=== PATIENT | male | born 1930 | race Caucasian/White ===

== ENCOUNTER 2017-08-14 12:11 | Observation (INO) | payer MEDICARE, OTHER ==
[2017-08-14] MEDS ORDERED: Sodium Chloride 0.9% 10 ML Syringe FLUSH PRN (12:47)
[2017-08-14] MEDS ORDERED: Non-Formulary Medication 1 Each (Albuterol Sulfate [Proair Respiclick] 1 PUFF) IH PRN (12:50)
[2017-08-14] MEDS ORDERED: Albuterol 0.083% 2.5 MG/3 ML Neb Soln NEB PRN (12:56)
[2017-08-14] MEDS ORDERED: Lactated Ringers 1,000 ML IV SCH ×2 (13:00→22:30)
[2017-08-14] MEDS ORDERED: Acetaminophen 325 MG Tab PO PRN (14:00)
[2017-08-14] MEDS ORDERED: Gabapentin 100 MG Cap PO SCH (20:00)
[2017-08-14] MEDS: Tamsulosin 0.4 MG Cap.ER PO SCH (20:04)
--- NOTE | 2017-08-14 20:18 | HP ---
CHIEF COMPLAINT: Shakiness and confusion. HISTORY OF PRESENT ILLNESS: This is an 86-year-old male who was in his normal state of health yesterday, woke up this morning to his alarm and had shaking. He did not feel cold or had any fevers. No other symptoms but was reported to be confused when he showed up at work. He drove there. They tried to get him to come to the clinic, but he went to some financial appointment and they actually brought him over to the clinic. His daughter works here. He was seen. He was found to have a temperature of 101, but his white count was normal and there was no other symptoms to suggest a source of infection. His urine test was normal. He was having a hard time voiding as he had been incontinent. His kidney function was otherwise near baseline at creatinine 1.4. He had a tick bite on the right arm and had some cellulitis, was treated for that on 08/05 with doxycycline for 1 week. It was here in [facility]. Otherwise, he has not been short of breath. No new muscle aches. No new skin rashes. ALLERGIES: Allergies include Rocephin. MEDICATIONS: Medication list is reviewed. Does include Lasix 20 mg daily, Ditropan 10 mg daily, Zocor 20 mg at bedtime, Flomax 0.4 mg b.i.d., Neurontin 200 mg take 2 at bedtime, Lopressor 25 mg daily, Claritin 10 mg daily, nitroglycerin every 5 minutes as needed for chest pain, albuterol as needed, multivitamin, vitamin D, B complex, B12, aspirin 81 mg daily, fish oil, and oxygen 4-5 L at night. 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 He did have an aortic valve replacement with bioprosthesis in 2010. 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 SURGICAL HISTORY: Includes a heart valve replacement as discussed above. He has also had eye surgery with cataracts and carpal tunnel bilaterally. FAMILY HISTORY: The patient's parents are both . He has a sister has heart disease and hypertension. SOCIAL HISTORY: He is . 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 He has 5 children. He is planning on moving into [place] soon. REVIEW OF SYSTEMS: General: There have been no weight changes. HEENT: No sore throat. Cardiac: No chest pain. No palpitations. Respiratory: No cough. No shortness of breath. Musculoskeletal: No new joint aches or pain. Skin: No new rashes. Otherwise, all systems reviewed and found to be negative unless otherwise stated. PHYSICAL EXAMINATION: Vital Signs: Does show him to have a blood pressure 130/72, temp 101.4, pulse 99, pulse ox 96% on room air. General: He is in no acute distress. Heart: Regular rate and rhythm. S1, S2 with murmur. Lungs: Sound clear to auscultation bilaterally. No crackles or wheezes. Extremities: Warm and dry. No edema. Mental Status: Alert and orientated x3. His confusion did clear up while he was at the clinic. He was also given some Tylenol, but fever persisted. Neck: Otherwise his neck is supple without lymphadenopathy. He has not been vomiting. He has no headache. No neck stiffness. No nuchal rigidity. LABORATORY DATA: White count normal at 9.3, hemoglobin 11.3, platelets 134. Sodium 137, glucose 163, BUN 29, creatinine 1.4, chloride 102, bicarb 25. UA completely negative for leukocyte esterase and nitrite. Protein and blood all negative. ASSESSMENT AND PLAN: 1. Fever, unknown source, possibly a viral illness like West Nile. There is no indication for antibiotics, but given history of endocarditis, we will do some blood cultures. We will give him some fluids. We will keep him in the hospital on observation as discussed with him and his daughter. We will send off some blood work for lactic acid, blood cultures, liver enzymes, and monitor clinically. We will have Tylenol available for fever. 2. Mild renal insufficiency with chronic kidney disease. We will hold off on any NSAIDs. We will repeat lab work in the morning. 3. History of endocarditis. He has a bioprosthetic valve. Again, we will do blood cultures. 4. Essential hypertension. 5. Type 2 diabetes, stable. We will do some Accu-Cheks. We will continue home medications. PLAN: The patient is admitted for observation for further workup of fever. We will send off West Nile testing. We will reassess in the morning. Discharge home if no further fevers. He is a code level 1. No DVT prophylaxis due to plan for discharge within 24 hours. MKA: 08/14/2017 14:00:31 MODL: 08/14/2017 20:10:38 /[id number]
[2017-08-14] MEDS ORDERED: Ibuprofen 200 MG Tab PO PRN (22:25)
[2017-08-15] MEDS ORDERED: Ibuprofen 200 MG Tab PO PRN (00:43)
[2017-08-15] MEDS: Tamsulosin 0.4 MG Cap.ER PO SCH (07:53)
[2017-08-15] MEDS ORDERED: Metoprolol Tartrate 25 MG Tab PO SCH (08:00)
[2017-08-15] MEDS ORDERED: Loratadine 10 MG Tab PO SCH (08:00)
[2017-08-15] MEDS ORDERED: Aspirin 81 MG Tab.EC PO SCH (08:00)
--- NOTE | 2017-08-15 10:18 | PCM.DCSUM1 ---
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 Was treated for a tick bite to the right arm with cellulitis with doxycycline on 08/05 for 7 days. He had otherwise felt well with no other symptoms other than today he mentions a mild headache yesterday, aching all over, and some back discomfort after sleeping in the hospital bed. UA and CXR at the clinic did not reveal any infection and WBC count was normal. NO ABX were started until the blood cultures returned. He had fever again last night up to 102 and got fluids, tylenol, and 1 dose of motrin. Last temp was around midnight. Transfer arranged to [facility] for further care including REJI to evaluate for endocarditis. He had a cxr completed which showed mild edema, fluids have been stopped. he has an EF of 60 % back in 2017. Labs were not able to be completed this AM. He did get a neb yesterday but denies any SOB family says his breathing can sometimes be like this. - Discharge Data Discharge Date: 08/15/17 Discharge Disposition: DC/Tfer to Acute Hospital 02 Condition: Good - Discharge Diagnosis/Problem(s) (1) Gram-positive bacteremia SNOMED Code(s): 077620008460 ICD Code: R78.81 - BACTEREMIA Status: Acute - Patient Summary/Data Consults: Consultations 08/15/17 08:33 PT Evaluation and Treatment [CONS] Routine - Discharge Plan Home Medications: Home Meds Albuterol Sulfate [Proair Respiclick] 1 - 2 puff IH Q4H PRN 08/14/17 [History] Aspirin 81 mg PO DAILY 08/14/17 [History] Cholecalciferol (Vitamin D3) [Vitamin D3] 1,000 units PO DAILY 08/14/17 [History ] Fish Oil/[place]-3 Fatty Acids [Fish Oil 1,000 MG] 1 cap PO BID 08/14/17 [History] Furosemide [Lasix] 20 mg PO DAILY 08/14/17 [History] Gabapentin [Neurontin] 200 mg PO BEDTIME 08/14/17 [History] Loratadine [Claritin] 10 mg PO DAILY 08/14/17 [History] Metoprolol Tartrate 25 mg PO DAILY 08/14/17 [History] Multivitamin [Daily Multiple Vitamin] 1 tab PO DAILY 08/14/17 [History] Nitroglycerin [Nitrostat] 0.4 mg SL ASDIRECTED PRN 08/14/17 [History] Non-Formulary Medication [NF Drug] 1 each PO DAILY 08/14/17 [History] Oxybutynin [Oxybutynin ER] 10 mg PO DAILY 08/14/17 [History] Simvastatin [Zocor] 20 mg PO BEDTIME 08/14/17 [History] Tamsulosin [Tamsulosin 24 Hr] 0.4 mg PO BID 08/14/17 [History] Forms: Interfacility Transfer EMTALA - Discharge Summary/Plan Comment DC Time >30 min.: No - General Info Date of Service: 08/15/17 Functional Status: Reports: Pain Controlled, Tolerating Diet - Review of Systems General: Reports: Fever, Weakness, Fatigue Pulmonary: Denies: Shortness of Breath, Pleuritic Chest Pain, Wheezing Cardiovascular: Reports: No Symptoms Gastrointestinal: Reports: No Symptoms Musculoskeletal: Reports: Other (myalgia) Skin: Reports: No Symptoms Neurological: Reports: Confusion (yesterday none today) - Patient Data Vitals - Most Recent: Last Vital Signs Temp 98.2 F 08/15/17 10:00 Pulse 69 08/15/17 10:00 Resp 18 08/15/17 10:00 BP 115/52 L 08/15/17 10:00 Pulse Ox 93 L 08/15/17 10:00 Weight - Most Recent: 108.409 kg I&O - Last 24 hours: Intake & Output 08/14/17 08/15/17 08/15/17 22:59 06:59 14:59 Intake Total 1534 2200 240 Output Total 200 1250 Balance 1334 950 240 Lab Results - Last 24 hrs: Laboratory Results - last 24 hr 08/14/17 08/14/17 08/14/17 Range/Units 13:10 13:10 13:10 ESR 52 H (0-16) mm/hr POC Glucose (74-106) mg/dL Lactic Acid 1.5 (0.4-2.0) mmol/L Total Bilirubin 0.6 (0.2-1.0) mg/dL Direct Bilirubin 0.11 (0.00-0.20) mg/dL AST 19 (15-37) U/L ALT 25 (16-63) U/L Alkaline Phosphatase 68 (46-116) U/L C-Reactive Protein 3.8 H (<=0.9) mg/dL Total Protein 7.5 (6.4-8.2) g/dL Albumin 3.6 (3.4-5.0) g/dL Globulin 3.9 Albumin/Globulin Ratio 0.92 08/14/17 08/14/17 08/15/17 Range/Units 17:09 20:29 00:21 ESR (0-16) mm/hr POC Glucose 115 H 104 155 H (74-106) mg/dL Lactic Acid (0.4-2.0) mmol/L Total Bilirubin (0.2-1.0) mg/dL Direct Bilirubin (0.00-0.20) mg/dL AST (15-37) U/L ALT (16-63) U/L Alkaline Phosphatase (46-116) U/L C-Reactive Protein (<=0.9) mg/dL Total Protein (6.4-8.2) g/dL Albumin (3.4-5.0) g/dL Globulin Albumin/Globulin Ratio 08/15/17 Range/Units 05:58 ESR (0-16) mm/hr POC Glucose 158 H (74-106) mg/dL Lactic Acid (0.4-2.0) mmol/L Total Bilirubin (0.2-1.0) mg/dL Direct Bilirubin (0.00-0.20) mg/dL AST (15-37) U/L ALT (16-63) U/L Alkaline Phosphatase (46-116) U/L C-Reactive Protein (<=0.9) mg/dL Total Protein (6.4-8.2) g/dL Albumin (3.4-5.0) g/dL Globulin Albumin/Globulin Ratio REYES Results - Last 24 hrs: Microbiology 08/14/17 13:15 Aerobic Blood Culture - Preliminary Blood - Venous - Lab Draw Gram Positive Cocci Anaerobic Blood Culture - Preliminary Gram Positive Cocci 08/14/17 13:10 Aerobic Blood Culture - Preliminary Blood - Venous Gram Positive Cocci Anaerobic Blood Culture - Preliminary Gram Positive Cocci Med Orders - Current: Current Medications Discontinued Medications Acetaminophen (Tylenol) 650 mg PO Q4H PRN PRN Reason: Fever Last Admin: 08/14/17 17:42 Dose: 650 mg Albuterol (Proventil Neb Soln) 2.5 mg NEB Q4H PRN PRN Reason: Shortness of Breath Last Admin: 08/14/17 18:15 Dose: 2.5 mg Aspirin (Halfprin) 81 mg PO DAILY [facility] Last Admin: 08/15/17 07:53 Dose: 81 mg Gabapentin (Neurontin) 200 mg PO BEDTIME [facility] Last Admin: 08/14/17 20:03 Dose: 200 mg Lactated Ringer's (Ringers, Lactated) 1,000 mls @ 125 mls/hr IV ASDIRECTED [facility] Stop: 08/14/17 20:59 Last Admin: 08/14/17 13:35 Dose: 125 mls/hr Lactated Ringer's (Ringers, Lactated) 1,000 mls @ 125 mls/hr IV ASDIRECTED [facility] Last Admin: 08/14/17 22:49 Dose: 125 mls/hr Vancomycin HCl 1.5 gm/ Sodium (Chloride) 280 mls @ 185 mls/hr IV STAT ONE Stop: 08/15/17 10:45 Vancomycin HCl 1.75 gm/ Sodium (Chloride) 290 mls @ 165 mls/hr IV STAT ONE Stop: 08/15/17 11:00 Last Admin: 08/15/17 09:27 Dose: 165 mls/hr Ibuprofen (Motrin) 200 mg PO Q4H PRN PRN Reason: Pain/Fever Last Admin: 08/14/17 22:51 Dose: 200 mg Ibuprofen (Motrin) 200 - 400 mg PO Q4H PRN PRN Reason: Pain/Fever Loratadine (Claritin) 10 mg PO DAILY [facility] Last Admin: 08/15/17 07:53 Dose: 10 mg Metoprolol Tartrate (Lopressor) 25 mg PO DAILY [facility] Last Admin: 08/15/17 07:53 Dose: 25 mg Sodium Chloride (Saline Flush) 10 ml FLUSH ASDIRECTED PRN PRN Reason: Keep Vein Open Tamsulosin HCl (Flomax) 0.4 mg PO BID [facility] Last Admin: 08/15/17 07:53 Dose: 0.4 mg - Exam General: Reports: Alert, Oriented, Cooperative HEENT: Reports: Pupils Equal Neck: Reports: Supple, Trachea Midline, No JVD Lungs: Reports: Clear to Auscultation, Normal Respiratory Effort. Denies: Decreased Breath Sounds, Crackles Cardiovascular: Reports: Regular Rate, Regular Rhythm, Murmurs GI/Abdominal Exam: Normal Bowel Sounds, Soft Skin: Reports: Warm, Dry, Intact Psy/Mental Status: Reports: Alert, Normal Affect, Normal Mood
== END 2017-08-15 10:00 | disposition short-term general hospital (02) ==
LOC: VM.MS 12:13
PROVIDERS: ADMIT Internal Medicine; ATTEND Internal Medicine
DX: R78.81 Bacteremia (principal); I25.10 Atherosclerotic heart disease of native coronary artery without angina pectoris; I11.0 Hypertensive heart disease with heart failure; I50.32 Chronic diastolic (congestive) heart failure; I27.20 Pulmonary hypertension, unspecified; E11.40 Type 2 diabetes mellitus with diabetic neuropathy, unspecified; E78.5 Hyperlipidemia, unspecified; D63.8 Anemia in other chronic diseases classified elsewhere; G47.33 Obstructive sleep apnea (adult) (pediatric); Z99.81 Dependence on supplemental oxygen; M19.90 Unspecified osteoarthritis, unspecified site; J44.9 Chronic obstructive pulmonary disease, unspecified; N40.1 Benign prostatic hyperplasia with lower urinary tract symptoms; R39.15 Urgency of urination; Z79.82 Long term (current) use of aspirin; Z79.899 Other long term (current) drug therapy; Z88.1 Allergy status to other antibiotic agents
CPT/HCPCS: 36415; 71046; 80076; 82962; 83605; 85652; 86140; 86788; 87040; 87077; 87186; 96361; 96374; A9270-GY; G0378; J3370; J7050; J7120; J7620-GY